=== PATIENT | female | born 2005 | race Caucasian/White ===

== ENCOUNTER 2024-03-26 22:19 | Emergency (ER) | payer BC ==
[~2024-03-26] VITALS: Ht 165.1 cm; Wt 53.6 kg
[2024-03-26 22:42] VITALS: TEMP 98.2
[2024-03-26 23:37] LABS: TRICYCLIC ANTIDEPRESS URINE NEGATIVE (NEGATIVE)
[2024-03-27 00:11] VITALS: BP 127/66; PULSE 77
== END 2024-03-27 00:22 | disposition home or self-care (01) ==
LOC: COL.ER 22:19
PROVIDERS: Physician Assistant
DX: T50.905A Adverse effect of unspecified drugs, medicaments and biological substances, initial encounter (principal); F41.9 Anxiety disorder, unspecified; F17.210 Nicotine dependence, cigarettes, uncomplicated